=== PATIENT | male | born 1950 | race Hispanic/Latino ===

== ENCOUNTER → 2020-04-28 | Day surgery (SDC) | payer BC, OTHER ==
[2020-04-24 16:43] LABS: BASOPHILS % 0.5 % (0.0-1.0); EOSINOPHILS # (AUTO) 0.1 (0.0-0.4); EOSINOPHILS % 1.3 % (0.0-6.0); HEMATOCRIT 43.7 % (38.2-49.6); HEMOGLOBIN 14.8 g/dL (14.0-18.0); LYMPHOCYTES % 26.4 % (18.0-39.1); MEAN CORPUSCULAR HGB CONC 33.9 g/dL (31-35); MEAN CORPUSCULAR VOLUME 88.5 fL (81-99); MONOCYTES # (AUTO) 0.9 (0.2-0.8); MONOCYTES % 11.6 % (4.4-11.3); NEUTROPHILS # (AUTO) 4.5 (2.1-6.9); NEUTROPHILS % 59.7 % (38.7-80.0); PLATELET COUNT 227 x10e3/uL (140-360); RED BLOOD COUNT 4.94 x10e6/uL (4.3-5.7); RED CELL DISTRIBUTION WIDTH 13.6 % (11.7-14.4)
[~2020-04-28] MED LIST: ALLOPURINOL300 MG PO; ATORVASTATIN CA20 MG PO; HYOSCYAMINE 0.125 MG TAB ONE; PROPOFOL IV EMULSION 10 MG/ML 20 ML VIAL ONE
[2020-04-28 13:30] VITALS: BP 115/78
--- NOTE | 2020-04-28 14:10 | Operative Report ---
DATE OF PROCEDURE: 04/28/2020 SURGEON: Mj Steinberg MD PROCEDURE: Colonoscopy with polypectomy and biopsies. INDICATIONS FOR COLONOSCOPY: Surveillance colonoscopy, personal history of colon polyps, rectal spasms. MEDICATIONS: The patient was done under MAC, please see anesthesiologist's note. PROCEDURE IN DETAIL: With the patient in the left lateral decubitus position, a flexible fiberoptic Olympus colonoscope was inserted into the rectum with ease and advanced all the way to the cecum. Mucosa overlying the cecum appeared to be within normal limits. An approximately 8 mm sessile polyp was noted in the cecum that was removed per hot snare polypectomy and site was hemoclipped x1. The scope was then withdrawn slowly and mucosa overlying the ascending colon appeared to be within normal limits. One polyp was hot biopsied and site was hemoclipped in the transverse colon. Diverticular disease was noted to involve the distal descending and the sigmoid colon. One minute polyp was hot biopsied from the sigmoid colon. An additional minute polyp was hot biopsied from the rectum. The mucosa overlying the rectum revealed some patchy intense erythema and low-grade to moderate edema, and biopsies were obtained. The scope was then retroflexed into the distal rectum and small internal hemorrhoids were noted, none of which was actively bleeding. The scope was then straightened out and it was subsequently withdrawn. A questionable prostate nodule was noted on the rectal exam. The patient tolerated the procedure well. IMPRESSION: 1. Cecal polyp approximately 8 mm in size, sessile, hot snared and site hemoclipped x1. 2. Transverse colon polyp, hot biopsied and site hemoclipped x1. 3. Diverticulosis. 4. Sigmoid colon polyp, hot biopsied. 5. Rectal polyp, hot biopsied. 6. Proctitis, mild, biopsied. 7. Internal hemorrhoids, none actively bleeding. 8. ? Questionable prostate nodule. PLAN: Follow up histology. Initiate high-fiber, low-fat diet. Initiate high-fiber supplement. The patient might benefit from a followup colonoscopy in 3 years. We will need a PSA done. Mj Steinberg MD [facility] [place]/[facility]IL /[id number] cc: Dago Hung
== END | disposition home or self-care (01) ==
LOC: OR 07:54
PROVIDERS: ATTEND Internal Medicine Gastroenterology
DX: K62.89 Other specified diseases of anus and rectum (principal); D12.0 Benign neoplasm of cecum; K62.1 Rectal polyp; K57.30 Diverticulosis of large intestine without perforation or abscess without bleeding; K64.8 Other hemorrhoids; I45.10 Unspecified right bundle-branch block; M10.9 Gout, unspecified; Z01.810 Encounter for preprocedural cardiovascular examination; Z01.812 Encounter for preprocedural laboratory examination; Z11.59 Encounter for screening for other viral diseases; Z68.32 Body mass index [BMI] 32.0-32.9, adult
CPT/HCPCS: 36415; 45380; 45384; 45385; 84152; 85025; 87635; 93005; J2704

== ENCOUNTER 2020-07-31 09:15 | Observation (INO) | payer BC, OTHER ==
[2020-07-25 14:39] LABS: BASOPHILS % 0.6 % (0.0-1.0); EOSINOPHILS # (AUTO) 0.1 (0.0-0.4); EOSINOPHILS % 0.9 % (0.0-6.0); HEMATOCRIT 41.6 % (38.2-49.6); HEMOGLOBIN 14.1 g/dL (14.0-18.0); LYMPHOCYTES # (AUTO) 1.9 (1.0-3.2); LYMPHOCYTES % 27.4 % (18.0-39.1); MEAN CORPUSCULAR HEMOGLOBIN 29.9 pg (28-32); MEAN CORPUSCULAR HGB CONC 33.9 g/dL (31-35); MEAN CORPUSCULAR VOLUME 88.1 fL (81-99); MONOCYTES # (AUTO) 0.5 (0.2-0.8); MONOCYTES % 6.8 % (4.4-11.3); NEUTROPHILS # (AUTO) 4.4 (2.1-6.9); NEUTROPHILS % 63.9 % (38.7-80.0); PLATELET COUNT 213 x10e3/uL (140-360); RED BLOOD COUNT 4.72 x10e6/uL (4.3-5.7); RED CELL DISTRIBUTION WIDTH 13.5 % (11.7-14.4)
[2020-07-25 15:05] LABS: INR 0.88; PARTIAL THROMBOPLASTIN TIME 27.9 seconds (23.8-35.5); PROTHROMBIN TIME 12.4 seconds (11.9-14.5)
[2020-07-25 16:54] LABS: BLOOD UREA NITROGEN 17 mg/dL (7-26); BUN/CREATININE RATIO 14 (6-25); CALCIUM 9.5 mg/dL (8.4-10.2); CARBON DIOXIDE 24 mmol/L (22-29); CHLORIDE 105 mmol/L (98-107); CREATININE, SERUM 1.18 mg/dL (0.72-1.25); EST GLOMERULAR FILTRATION RATE > 60 ML/MIN (60-); GLUCOSE 104 mg/dL (74-118); SODIUM 143 mmol/L (136-145)
[~2020-07-31] VITALS: Ht 167.6 cm; Wt 90.7 kg
[2020-07-31] VITALS (8 sets, daily range): BP systolic 114–141; BP diastolic 67–83
[~2020-07-31 09:15] MED LIST changes: +BUPIVACAINE 0.5%/EPI 30 ML SDV INJ ONE; +BUPIVACAINE HCL 0.5% INJ 30 ML VIAL INJ ONE; -HYOSCYAMINE 0.125 MG TAB ONE; +IBUPROFEN 800MG/ 200ML 200 ML IV ONE; +LIDOCAINE HCL (LTA) 4 ML SOLN ONE; -PROPOFOL IV EMULSION 10 MG/ML 20 ML VIAL ONE; +THROMBIN FOR SOLN 5,000 UNIT VIAL ONE; +VANCOMYCIN HCL 1 GM VIAL ONE
[2020-07-31] MEDS ORDERED: CEFAZOLIN SOD 1 GM/NS 50ML 50 ML IV ONE (09:48)
[2020-07-31] MEDS ORDERED: OXYCODONE/ACETAMINOPHEN 5-325 1 EACH TABLET PO PRN (12:15)
[2020-07-31] MEDS ORDERED: PROMETHAZINE HCL (IM) 25 MG/ML VIAL IM PRN (12:15)
[2020-07-31] MEDS ORDERED: ONDANSETRON HCL INJ 2MG/ML 2ML 2 MG/ML VIAL IV PRN (12:15)
[2020-07-31] MEDS ORDERED: ACETAMINOPHEN 325 MG TAB PO PRN (12:15)
[2020-07-31] MEDS ORDERED: MAGNESIUM/ALUMINUM/SIMETHICONE 30 ML UDC PO PRN (12:15)
[2020-07-31] MEDS ORDERED: MORPHINE SULFATE 5 MG/ML VIAL IM PRN (12:15)
[2020-07-31] MEDS ORDERED: MIDAZOLAM HCL 2 MG/2 ML VIAL ONE (13:04)
[2020-07-31] MEDS ORDERED: FENTANYL CITRATE/PF 100MCG/2 ML INJ ONE (13:04)
[2020-07-31] MEDS ORDERED: SEVOFLURANE INHAL SOLN 250 ML PEN BTL ONE (13:55)
[2020-07-31] MEDS ORDERED: ONDANSETRON HCL INJ 2MG/ML 2ML 2 MG/ML VIAL ONE (13:55)
[2020-07-31] MEDS ORDERED: DEXAMETHASONE SOD PHOS INJ 4 MG/ML VIAL ONE (13:55)
[2020-07-31] MEDS ORDERED: NEOSTIGMINE 1 MG/ML 10ML VIAL ONE (13:55)
[2020-07-31] MEDS ORDERED: LIDOCAINE HCL 2% LOCAL INJ 5 ML SDV VIAL INJ ONE (13:55)
[2020-07-31] MEDS ORDERED: ROCURONIUM BROMIDE 10 MG/ML 5ML VIAL IV ONE (13:55)
[2020-07-31] MEDS ORDERED: PROPOFOL IV EMULSION 10 MG/ML 20 ML VIAL ONE (13:55)
[2020-07-31] MEDS ORDERED: GLYCOPYRROLATE INJ 0.2 MG/ML VIAL ONE (13:55)
[2020-07-31] MEDS: HYDROMORPHONE 2MG/ML 2 MG/ML ML IV PRN ×2 (15:39→19:53)
[2020-07-31] MEDS: LACTATED RINGER'S 1,000 ML IV SCH ×2 (15:39→20:35)
[2020-07-31] MEDS: CARISOPRODOL 350 MG TAB PO PRN ×2 (15:39→19:53)
[2020-07-31] MEDS: CEFAZOLIN SOD 1 GM/NS 50ML 50 ML IV SCH (19:52)
[2020-07-31] MEDS ORDERED: ATORVASTATIN 20 MG TAB PO SCH (21:00)
[2020-07-31] MEDS ORDERED: ZOLPIDEM TARTRATE 5 MG TAB PO PRN ×2 (21:00)
[2020-08-01] VITALS: BP 113/69
[2020-08-01] MEDS: CEFAZOLIN SOD 1 GM/NS 50ML 50 ML IV SCH ×2 (04:16→11:09)
[2020-08-01] MEDS: CARISOPRODOL 350 MG TAB PO PRN ×2 (04:16→09:53)
[2020-08-01] MEDS: HYDROMORPHONE 2MG/ML 2 MG/ML ML IV PRN ×2 (04:16→09:35)
[2020-08-01 04:54] VITALS: BP 118/68
[2020-08-01 07:40] VITALS: BP 110/67
[2020-08-01 07:53] VITALS: BP 110/67
[2020-08-01] MEDS ORDERED: NORCO 7.5-3251 EACH PO (08:42)
[2020-08-01] MEDS ORDERED: ALLOPURINOL 300 MG TAB PO SCH (09:00)
[2020-08-01 12:00] VITALS: BP 113/78
== END 2020-08-01 12:35 | disposition home or self-care (01) ==
LOC: OR 09:15 → PACU V 12:11 → IMCU 14:09
PROVIDERS: ADMIT Neurological Surgery; ATTEND Neurological Surgery
DX: M50.120 Mid-cervical disc disorder, unspecified level (principal); G56.03 Carpal tunnel syndrome, bilateral upper limbs; Z11.59 Encounter for screening for other viral diseases; Z01.812 Encounter for preprocedural laboratory examination
CPT/HCPCS: 20931; 22551; 22845; 36415 ×2; 64721; 71046; 72040; 77003; 80048; 85025; 85610; 85730; 86850; 86900; 88304; 88311; 93005; C1713 ×2; C9359; G0378 ×2; J0690 ×2; J1100; J1170 ×2; J2001; J2250; J2405; J2704; J2710; J3010; J3370; J7121; U0002

== ENCOUNTER → 2020-09-11 | Day surgery (SDC) | payer BC, OTHER ==
[2020-09-08 11:40] LABS: BASOPHILS % 0.4 % (0.0-1.0); EOSINOPHILS # (AUTO) 0.1 (0.0-0.4); EOSINOPHILS % 1.8 % (0.0-6.0); HEMATOCRIT 41.2 % (38.2-49.6); HEMOGLOBIN 14.1 g/dL (14.0-18.0); LYMPHOCYTES # (AUTO) 1.6 (1.0-3.2); LYMPHOCYTES % 31.5 % (18.0-39.1); MEAN CORPUSCULAR HEMOGLOBIN 30.2 pg (28-32); MEAN CORPUSCULAR HGB CONC 34.2 g/dL (31-35); MEAN CORPUSCULAR VOLUME 88.2 fL (81-99); MONOCYTES # (AUTO) 0.4 (0.2-0.8); MONOCYTES % 8.2 % (4.4-11.3); NEUTROPHILS # (AUTO) 2.9 (2.1-6.9); NEUTROPHILS % 57.9 % (38.7-80.0); PLATELET COUNT 191 x10e3/uL (140-360); RED BLOOD COUNT 4.67 x10e6/uL (4.3-5.7); RED CELL DISTRIBUTION WIDTH 13.3 % (11.7-14.4)
[2020-09-08 11:54] LABS: INR 0.87; PARTIAL THROMBOPLASTIN TIME 28.1 seconds (23.8-35.5); PROTHROMBIN TIME 12.3 seconds (11.9-14.5)
[~2020-09-11] MED LIST changes: -BUPIVACAINE 0.5%/EPI 30 ML SDV INJ ONE; +CEFAZOLIN SOD 1 GM/NS 50ML 50 ML IV ONE; +DEXAMETHASONE SOD PHOS INJ 4 MG/ML VIAL ONE; -IBUPROFEN 800MG/ 200ML 200 ML IV ONE; +KETOROLAC TROMETHAMINE 30 MG/ML VIAL ONE; -LIDOCAINE HCL (LTA) 4 ML SOLN ONE; +LIDOCAINE HCL 2% LOCAL INJ 5 ML SDV VIAL INJ ONE; +NORCO 7.5-3251 EACH PO; +ONDANSETRON HCL INJ 2MG/ML 2ML 2 MG/ML VIAL ONE; +PROPOFOL IV EMULSION 10 MG/ML 20 ML VIAL ONE; +SEVOFLURANE INHAL SOLN 250 ML PEN BTL ONE; -THROMBIN FOR SOLN 5,000 UNIT VIAL ONE; -VANCOMYCIN HCL 1 GM VIAL ONE
[2020-09-11 10:05] VITALS: BP 109/72
--- NOTE | 2020-09-11 13:01 | Operative Report ---
DATE OF PROCEDURE: 09/11/2020 SURGEON: Niko Clay MD PREOPERATIVE DIAGNOSIS: Right carpal tunnel syndrome. POSTOPERATIVE DIAGNOSIS: Right carpal tunnel syndrome. PROCEDURE: Right carpal tunnel release. ANESTHESIA: General. INDICATIONS: The patient is a 69-year-old man, who presents with right carpal tunnel syndrome, and was taken to surgery for a right carpal tunnel release. PROCEDURE IN DETAIL: After induction of general anesthesia, the patient was placed on the operating table in supine position. The right hand, wrist, and forearm were prepped and draped in sterile fashion. The tourniquet was inflated over the upper arm to 250 mmHg. A small midline incision was created over the median palmar crease of the hand just distal to the distal flexor crease of the wrist. The subcutaneous fat was divided. The transverse carpal ligament was incised with a #15 C blade until the underlying median nerve came into view. As the dermatology physician assistant retracted the skin edges, the transverse carpal ligament was divided proximally and distally until the full length of ligament had been divided and full length of the median nerve within the carpal tunnel was exposed and decompressed. The point of maximum compression appeared to be about 2.5 cm distal to the distal flexor crease of the wrist, where the ligament was at its thickest. More distally, the recurrent motor branch of the nerve was preserved within this fat pad. The wound was irrigated with bacitracin solution and closed with 2-0 Vicryl sutures and 3-0 nylon sutures in a vertical mattress fashion. A dressing was applied and tourniquet was deflated. The patient was awakened, extubated, and taken to postanesthesia care unit in stable condition. No intraoperative complications were encountered. Estimated blood loss was minimal. Niko Clay MD [facility] /[id number]
== END | disposition home or self-care (01) ==
LOC: OR 06:11
PROVIDERS: ATTEND Neurological Surgery
DX: G56.01 Carpal tunnel syndrome, right upper limb (principal); E78.5 Hyperlipidemia, unspecified; Z01.810 Encounter for preprocedural cardiovascular examination; Z01.812 Encounter for preprocedural laboratory examination; Z11.59 Encounter for screening for other viral diseases; Z68.31 Body mass index [BMI] 31.0-31.9, adult
CPT/HCPCS: 36415; 64721; 85025; 85610; 85730; 93005; J0690; U0002; J1100; J1885; J2001; J2405

== ENCOUNTER 2020-10-15 08:41 | Outpatient (RCR) | payer BC ==
[~2020-10-15 08:41] MED LIST changes: -BUPIVACAINE HCL 0.5% INJ 30 ML VIAL INJ ONE; -CEFAZOLIN SOD 1 GM/NS 50ML 50 ML IV ONE; -DEXAMETHASONE SOD PHOS INJ 4 MG/ML VIAL ONE; -KETOROLAC TROMETHAMINE 30 MG/ML VIAL ONE; -LIDOCAINE HCL 2% LOCAL INJ 5 ML SDV VIAL INJ ONE; -ONDANSETRON HCL INJ 2MG/ML 2ML 2 MG/ML VIAL ONE; -PROPOFOL IV EMULSION 10 MG/ML 20 ML VIAL ONE; -SEVOFLURANE INHAL SOLN 250 ML PEN BTL ONE
== END 2020-10-20 ==
LOC: OT 08:41
PROVIDERS: ATTEND Neurological Surgery
DX: G56.01 Carpal tunnel syndrome, right upper limb (principal); M25.531 Pain in right wrist; M25.631 Stiffness of right wrist, not elsewhere classified; R53.1 Weakness; R20.9 Unspecified disturbances of skin sensation

== ENCOUNTER 2020-11-05 14:03 | Outpatient (RCR) | payer BC | END 2020-11-20 | LOC: PT 14:03 | PROVIDERS: ATTEND Neurological Surgery | DX: G56.01 Carpal tunnel syndrome, right upper limb (principal); M50.122 Cervical disc disorder at C5-C6 level with radiculopathy ==

== ENCOUNTER → 2024-06-20 | Day surgery (SDC) | payer BC ==
[2024-06-15 13:24] LABS: BASOPHILS % 0.4 % (0.0-1.0); EOSINOPHILS # (AUTO) 0.1 (0.0-0.4); HEMATOCRIT 42.1 % (38.2-49.6); HEMOGLOBIN 14.2 g/dL (14.0-18.0); LYMPHOCYTES # (AUTO) 1.6 (1.0-3.2); LYMPHOCYTES % 31.9 % (18.0-39.1); MEAN CORPUSCULAR HEMOGLOBIN 31.1 pg (28-32); MEAN CORPUSCULAR HGB CONC 33.7 g/dL (31-35); MEAN CORPUSCULAR VOLUME 92.1 fL (81-99); MONOCYTES # (AUTO) 0.4 (0.2-0.8); MONOCYTES % 7.9 % (4.4-11.3); NEUTROPHILS # (AUTO) 2.9 (2.1-6.9); NEUTROPHILS % 57.4 % (38.7-80.0); PLATELET COUNT 162 x10e3/uL (140-360); RED BLOOD COUNT 4.57 x10e6/uL (4.3-5.7); RED CELL DISTRIBUTION WIDTH 13.5 % (11.7-14.4); WHITE BLOOD COUNT 5.05 x10e3/uL (4.8-10.8)
[~2024-06-20] MED LIST changes: +LIDOCAINE HCL 2% LOCAL INJ 5 ML SDV VIAL INJ ONE; +MIDAZOLAM HCL 2 MG/2 ML VIAL ONE; +PROPOFOL IV EMULSION 10 MG/ML 20 ML VIAL ONE
[2024-06-20] MEDS: LACTATED RINGER'S 1,000 ML ONE (13:32)
[2024-06-20 15:42] VITALS: TEMP 97.7
[2024-06-20 16:10] VITALS: BP 143/90; PULSE 60; RESP 16; O2SAT 96
== END | disposition home or self-care (01) ==
LOC: OR 13:21
PROVIDERS: ATTEND Internal Medicine Gastroenterology
DX: K62.89 Other specified diseases of anus and rectum (principal); Z86.010 Personal history of colon polyps; K59.00 Constipation, unspecified; K57.30 Diverticulosis of large intestine without perforation or abscess without bleeding; K64.8 Other hemorrhoids; Z71.3 Dietary counseling and surveillance; E78.5 Hyperlipidemia, unspecified; M10.9 Gout, unspecified; M06.9 Rheumatoid arthritis, unspecified; Z01.810 Encounter for preprocedural cardiovascular examination; Z01.812 Encounter for preprocedural laboratory examination; Z79.899 Other long term (current) drug therapy; Z68.33 Body mass index [BMI] 33.0-33.9, adult
CPT/HCPCS: 36415; 45380; 84152; 85025; 93005; J2001; J2250; J2704; J7121; 45378